=== PATIENT | male | born 1960 | race Caucasian/White ===

== ENCOUNTER 2020-08-16 08:51 | Day surgery (SDC) | payer OTHER ==
[2020-08-15 08:37] VITALS: BMI 27.6
[~2020-08-16 08:51] MED LIST: LACTATED RINGERS 1,000 ML IV SCH; LIDOCAINE 1% (10MG/ML) FOR IV START INTRADERMA PRN
[2020-08-16 09:27] VITALS: RESP 16; TEMP 98.4
[2020-08-16] MEDS ORDERED: PROPOFOL 10 MG/ML 20 ML VIAL IV ONE (09:56)
--- NOTE | 2020-08-16 10:02 | P.GSHP ---
History of Present Illness H&P Date: 08/16/20 Chief Complaint: GERD, screening Patient here today for colonoscopy and upper endoscopy. Patient has complaints of frequent reflux. He did have good resolution of his symptoms with prescription antiacids. No dysphagia. No rectal bleeding or melena. Last colonoscopy 12 years ago and was normal. No bowel complaints. No family history of colon cancer. Past Medical History Additional Past Medical History / Comment(s): "watching pressure in eyes" History of Any Multi-Drug Resistant Organisms: None Reported Past Surgical History: Hernia Repair, Orthopedic Surgery Additional Past Surgical History / Comment(s): carlota foot sx, colonoscopy Past Anesthesia/Blood Transfusion Reactions: No Reported Reaction Smoking Status: Never smoker Medications and Allergies Home Medications Medication Instructions Recorded Confirmed Type Latanoprost/Pf [Latanoprost 0.005% 1 drop BOTH EYES HS 08/15/20 08/16/20 History Eye Drop] Allergies Allergy/AdvReac Type Severity Reaction Status Date / Time No Known Allergies Allergy Verified 08/16/20 09:27 Surgical - Exam Vital Signs Temp Pulse Resp BP Pulse Ox 98.4 F 69 16 156/92 97 08/16/20 09:18 08/16/20 09:18 08/16/20 09:18 08/16/20 09:18 08/16/20 09:18 Physical exam: General: Well-developed, well-nourished HEENT: Normocephalic, sclerae nonicteric Abdomen: Nontender, nondistended Extremities: No edema Neuro: Alert and oriented Assessment and Plan (1) Colon cancer screening Narrative/Plan: Will proceed with colonoscopy at this time Current Visit: Yes Status: Acute Code(s): Z12.11 - ENCOUNTER FOR SCREENING FOR MALIGNANT NEOPLASM OF COLON SNOMED Code(s): 080760647
--- NOTE | 2020-08-16 10:22 | P.PCN ---
Date of Procedure: 08/16/20 Procedure(s) Performed: PREOPERATIVE DIAGNOSIS: GERD, screening POSTOPERATIVE DIAGNOSIS: Mild gastritis, moderate to large hiatal hernia, erosive esophagitis, descending colon polyp, diverticulosis PROCEDURE: 1. EGD with biopsy 2. Colonoscopy with snare polypectomy ANESTHESIA: [facility] SURGEON: Alexander Dodson M.D. SPECIMENS: Antrum, distal esophagus, descending colon polyp ENDOSCOPIC PROCEDURE: The patient was on the endoscopy table in the left decubitus position. The Olympus gastroscope was inserted into the oropharynx and passed under direct visualization to the region of the third portion of the duodenum. From that point the scope was slowly withdrawn inspecting all surfaces carefully. There were no neoplastic inflammatory or polypoid lesions throughout the duodenum. The pylorus was widely patent. The stomach was carefully inspected. There was mild gastritis present. A biopsy of the antrum took place to rule out H. pylori. Retroflexion revealed a moderate to large hiatal hernia. The GE junction was present at least 5 cm above the diaphragmatic hiatus. The stomach above the diaphragm appeared fairly normal. The distal esophagus for a distance of approximately 10 cm however had circumferential esophagitis with numerous linear erosions and friability. No geovany neoplastic changes were seen however there was some mild nodularity to the mucosa inserted and areas. Numerous biopsies took place of the distal esophagus. It was difficult to identify serous changes clinically given the degree of inflammation. The mid and proximal esophagus appeared normal. The patient was kept on the endoscopy table in the left decubitus position. The Olympus colonoscope was inserted into the anus and passed under direct visualization to the base of the cecum. The appendiceal orifice was visualized. From that point the scope was slowly withdrawn inspecting all surfaces carefully. There were no neoplastic inflammatory or polypoid lesions throughout the cecum, ascending, and transverse colon. In the descending colon a small polyp was seen and removed using the snare with cautery technique. The remainder of the descending sigmoid and rectum were normal with the exception of mild diverticulosis. Digital rectal examination was normal. The patient was taken to the recovery room in stable condition per anesthesia guidelines. RECOMMENDATIONS: Await biopsy results. Recommend short-term follow-up EGD. Begin prescription antiacid therapy. Anticipate follow-up EGD and colonoscopy 5 years as well.
[2020-08-16 10:59] VITALS: BP 150/94; PULSE 61
== END 2020-08-16 11:17 | disposition home or self-care (01) ==
LOC: ORWHC2ENDO 08:51
PROVIDERS: ATTEND Surgery
DX: Z12.11 Encounter for screening for malignant neoplasm of colon (principal); K21.00 Gastro-esophageal reflux disease with esophagitis, without bleeding; K44.9 Diaphragmatic hernia without obstruction or gangrene; D12.4 Benign neoplasm of descending colon; K57.30 Diverticulosis of large intestine without perforation or abscess without bleeding; Z98.890 Other specified postprocedural states; Z79.899 Other long term (current) drug therapy
CPT/HCPCS: 88305; 45385; 43239; J2704

== ENCOUNTER 2020-11-01 08:23 | Day surgery (SDC) | payer OTHER ==
[2020-10-27 14:53] VITALS: BMI 27.5
[2020-11-01 08:42] VITALS: TEMP 97.7
[2020-11-01] MEDS ORDERED: LACTATED RINGERS 1,000 ML IV ONE (08:42)
[2020-11-01] MEDS ORDERED: PROPOFOL 10 MG/ML 20 ML VIAL IV ONE (09:13)
[2020-11-01] MEDS ORDERED: LIDOCAINE 1% INJ 10MG/ML (20 ML MDV) ONE (09:13)
--- NOTE | 2020-11-01 09:13 | P.GSHP ---
History of Present Illness H&P Date: 11/01/20 Chief Complaint: GERD Patient here today for upper endoscopy. Patient with significant esophagitis and hiatal hernia seen on recent upper endoscopy in July. Here for short- term follow-up. Patient has modified his diet and is now taking antacids daily. He feels much better. Past Medical History Past Medical History: GERD/Reflux Additional Past Medical History / Comment(s): "watching pressure in eyes d/t over enlarged optic nerve" History of Any Multi-Drug Resistant Organisms: None Reported Past Surgical History: Hernia Repair, Orthopedic Surgery Additional Past Surgical History / Comment(s): carlota foot sx, colonoscopy Past Anesthesia/Blood Transfusion Reactions: No Reported Reaction Smoking Status: Never smoker Medications and Allergies Home Medications Medication Instructions Recorded Confirmed Type Latanoprost/Pf [Latanoprost 0.005% 1 drop BOTH EYES HS 08/15/20 11/01/20 History Eye Drop] Omeprazole [PriLOSEC] 20 mg PO AC-BRKFST #90 cap 08/16/20 10/27/20 Rx Allergies Allergy/AdvReac Type Severity Reaction Status Date / Time No Known Allergies Allergy Verified 10/27/20 14:45 Surgical - Exam Vital Signs Temp Pulse Resp BP Pulse Ox 97.7 F 87 18 167/78 98 11/01/20 08:42 11/01/20 08:42 11/01/20 08:42 11/01/20 08:42 11/01/20 08:42 Physical exam: General: Well-developed, well-nourished HEENT: Normocephalic, sclerae nonicteric Abdomen: Nontender, nondistended Extremities: No edema Neuro: Alert and oriented Assessment and Plan (1) GERD with esophagitis Narrative/Plan: Will proceed with upper endoscopy Current Visit: Yes Status: Acute Code(s): K21.00 - GASTRO-ESOPHAGEAL REFLUX DIS WITH ESOPHAGITIS, WITHOUT BLEED SNOMED Code(s): 463191968
--- NOTE | 2020-11-01 09:22 | P.PCN ---
Date of Procedure: 11/01/20 Procedure(s) Performed: Preoperative Dx: GERD with esophagitis Postoperative Dx: Hiatal hernia, distal esophagitis with Browning's esophagus Procedure: EGD with Bx Anesthesia: Sedation Endoscopist: Dr. Dodson Specimens: Browning's esophagus Endoscopic Procedure: The patient was on the endoscopy table in the left decubitus position. The Olympus gastroscope was inserted into the oropharynx and passed under direct visualization to the region of the third portion of the duodenum. From that point the scope was slowly withdrawn inspecting all surfaces carefully. There were no neoplastic inflammatory or polypoid lesions throughout the duodenum. The pylorus was widely patent. The stomach was carefully inspected. There was no significant gastritis seen. Retroflexion revealed a moderate sized hiatal hernia. The GE junction was present 5 cm above the diaphragmatic hiatus. The stomach above the diaphragm appeared normal. The distal esophagus was significantly improved in regards to the degree of inflammation seen. There was still differential esophagitis extending approximately 2-3 cm above the Z line. There were mucosal changes consistent with Browning's esophagus. Numerous biopsies took place circumferentially. Inflammation of Browning's esophagus extended about 5 cm proximal to the Z line. The remainder the esophagus appear normal. The patient was then taken to the recovery room in stable condition per anesthesia guidelines. Recommendations: Await biopsy results. Recommend repeat EGD 2 years.
[2020-11-01 09:29] VITALS: RESP 16
[2020-11-01 09:42] VITALS: BP 127/84; PULSE 83
== END 2020-11-01 10:09 | disposition home or self-care (01) ==
LOC: ORWHC2ENDO 08:23
PROVIDERS: ATTEND Surgery
DX: K29.50 Unspecified chronic gastritis without bleeding (principal); K21.00 Gastro-esophageal reflux disease with esophagitis, without bleeding; Z98.890 Other specified postprocedural states; Z79.899 Other long term (current) drug therapy
CPT/HCPCS: 88305; 43239; J2001; J2704

== ENCOUNTER → 2022-08-02 | Outpatient (CLI) | payer OTHER ==
--- NOTE | 2022-08-02 11:05 | XR ---
EXAM TYPE: LUMBAR SPINE X RAY SERIES COMPARISON: NONE HISTORY: Pain TECHNIQUE: 3 views are submitted. FINDINGS: Alignment is anatomic. The pedicles are intact. The transverse processes are intact. There is mult ilevel hypertrophic spurring mild to moderate degenerative disc disease. There is a retrolisthesis of L2 relative to L3 posteriorly by approximately 6.3 mm. Multilevel foraminal encroachment is suspecte d. IMPRESSION: 1. Multilevel moderate degenerative disc disease with hypertrophic spurring. Suspect multilevel rosa inal encroachment. 2. There is a retrolisthesis of approximately 6.3 mm of L2 relative to L3. Follow-up MRI could be obt ained to assess for canal stenosis as clinically warranted.
--- NOTE | 2022-08-02 11:25 | XR ---
EXAMINATION TYPE: XR sacrum coccyx DATE OF EXAM: 08/02/2022 COMPARISON: NONE HISTORY: Pain Three views are submitted. Sacrum is intact. SI joints are symmetric. Coccyx appears to be intact. Visualized pelvic structures intact. Calcifications in the pelvis likely vascular. Facet arthropath y L5-S1. IMPRESSION: 1. Facet arthropathy L5-S1 with suspected foraminal encroachment.
== END | disposition home or self-care (01) ==
LOC: RADXRMAIN 10:16
PROVIDERS: ATTEND Family Medicine
DX: M43.16 Spondylolisthesis, lumbar region (principal); M51.36 Other intervertebral disc degeneration, lumbar region; M54.30 Sciatica, unspecified side
CPT/HCPCS: 72100; 72220

== ENCOUNTER → 2022-08-24 | Outpatient (CLI) | payer OTHER ==
--- NOTE | 2022-08-26 21:15 | MR ---
EXAMINATION TYPE: MR lumbar spine wo con DATE OF EXAM: 08/24/2022 COMPARISON: Lumbar spine x-ray August 02, 2022 HISTORY: Low back pain, stiffness into rt buttock. Intervertebral disc degeneration. TECHNIQUE: Multiplanar, multisequence imaging of the lumbar spine is performed without IV contrast. FINDINGS: Sagittal images of the lumbar spine show vertebral body height to appear satisfactory. Slig ht dextroconvex scoliotic curvature centered at L2-L3 level. There is grade 1 retrolisthesis L1 on L2 , L2 on L3, and L3 on L4. Slight. Multilevel disc desiccation. Mild to moderate disc space narrowing L4-L5 level. Moderate disc space narrowing and moderate to severe anterior spurring at L2-L3 and L3-L 4 levels. Moderate anterior spurring at L1-L2 level. The conus medullaris is normal in position and signal ending at superior L1 level. Heterogeneous Modic type II endplate changes at L2-L3 level. Axial images at T12-L1 level appear within normal limits. Axial images at L1-L2 level showed spondylolisthesis with mild to moderate broad disc bulge effacing the anterior thecal sac. Patent bilateral neural foramina. Axial images at L2-L3 level show spondylolisthesis and moderate broad disc bulge effaces the anterior thecal sac with mild facet arthropathy bilaterally. There is mild to moderate bilateral anterior inf erior neural foraminal narrowing. Axial images at L3-L4 level show spondylolisthesis and mild broad disc bulge effacing the anterior th ecal sac with mild to moderate bilateral anterior inferior neural foraminal narrowing. Axial images at L4-L5 level shows mild broad-based posterior disc protrusion effacing the thecal sac with mild/moderate facet arthropathy and ligamentum flavum hypertrophy. There is mild to moderate carlota ateral neural foraminal narrowing. There is splitting of the exiting right L4 nerve noted. Axial images at L5-S1 level show moderate to advanced facet arthropathy bilaterally. Spinal canal pre served. Bilateral neural foramina are patent. The right L5 nerve also splits within the neural forami na. Paraspinal muscle bulk is maintained. IMPRESSION: Multilevel spondylolisthesis and degenerative change in the lumbar spine as detailed riley amato
== END | disposition home or self-care (01) ==
LOC: RADMRIMAIN 17:45
PROVIDERS: ATTEND Family Medicine
DX: M43.16 Spondylolisthesis, lumbar region (principal); M47.816 Spondylosis without myelopathy or radiculopathy, lumbar region; M51.36 Other intervertebral disc degeneration, lumbar region
CPT/HCPCS: 72148

== ENCOUNTER 2024-05-18 11:42 | Inpatient (IN) | payer OTHER ==
--- NOTE | 2024-05-18 12:10 | ED ---
Altered Mental Status HPI - General Chief Complaint: Altered Mental Status Stated Complaint: AMS Time Seen by Provider: 05/18/24 11:53 Source: patient, family, RN notes reviewed, old records reviewed Mode of arrival: ambulatory Limitations: no limitations - History of Present Illness Initial Comments: This is a 64-year-old male to the ER for evaluation patient coming in for acute confusion. Family noticed that he went down to work out around 10 AM he came up around noon and started asking where questions was unable to get in his phone and family became very concerned over his neurological symptoms. Patient is unable to provide accurate history here in the ER but does who is ambulating freely around the exam room and keeps repeating himself MD Complaint: altered mental status, confusion -: hour(s) Severity: moderate Consistency of Symptoms: getting worse, constant Associated Symptoms: denies other symptoms Treatments Prior to Arrival: other pre-hospital medication (0) - Related Data Home Medications Medication Instructions Recorded Confirmed Latanoprost/Pf [Latanoprost 0.005% 1 drop BOTH EYES HS 08/15/20 05/18/24 Eye Drop] Omeprazole [PriLOSEC] 20 mg PO DAILY PRN 05/18/24 05/18/24 Previous Rx's Medication Instructions Recorded Aspirin 325 mg PO DAILY #90 tab 05/20/24 Atorvastatin [Lipitor] 80 mg PO HS #90 tab 05/20/24 Allergies Allergy/AdvReac Type Severity Reaction Status Date / Time No Known Allergies Allergy Verified 05/18/24 13:09 Review of Systems ROS Statement: Those systems with pertinent positive or pertinent negative responses have been documented in the HPI. ROS Other: All systems not noted in ROS Statement are negative. Past Medical History Past Medical History: GERD/Reflux Additional Past Medical History / Comment(s): "watching pressure in eyes d/t over enlarged optic nerve" History of Any Multi-Drug Resistant Organisms: None Reported Past Surgical History: Hernia Repair, Orthopedic Surgery Additional Past Surgical History / Comment(s): carlota foot sx, colonoscopy Past Anesthesia/Blood Transfusion Reactions: No Reported Reaction Past Psychological History: No Psychological Hx Reported Smoking Status: Never smoker - Past Family History Father Family Medical History: AFIB General Exam - General Exam Comments Initial Comments: Patient with a NIH of 3 Limitations: no limitations General appearance: alert, in no apparent distress, anxious Head exam: Present: atraumatic, normocephalic, normal inspection Eye exam: Present: normal appearance, PERRL, EOMI. Absent: scleral icterus, conjunctival injection, periorbital swelling ENT exam: Present: normal exam, mucous membranes moist Neck exam: Present: normal inspection. Absent: tenderness, meningismus, lymphadenopathy Respiratory exam: Present: normal lung sounds bilaterally. Absent: respiratory distress, wheezes, rales, rhonchi, stridor Cardiovascular Exam: Present: regular rate, normal rhythm, normal heart sounds. Absent: systolic murmur, diastolic murmur, rubs, gallop, clicks GI/Abdominal exam: Present: soft, normal bowel sounds. Absent: distended, tenderness, guarding, rebound, rigid Extremities exam: Present: normal inspection, full ROM, normal capillary refill. Absent: tenderness, pedal edema, joint swelling, calf tenderness Back exam: Present: normal inspection Neurological exam: Present: alert, oriented X3, CN II-XII intact Psychiatric exam: Present: normal affect, normal mood Skin exam: Present: warm, dry, intact, normal color. Absent: rash Course Vital Signs 05/18/24 05/18/24 05/18/24 11:49 11:57 12:18 Temperature 97.9 F Pulse Rate 60 57 L 60 Respiratory 20 23 18 Rate Blood Pressure 159/101 179/104 158/94 O2 Sat by Pulse 99 97 96 Oximetry 05/18/24 05/18/24 05/18/24 12:30 12:45 13:08 Temperature Pulse Rate 60 59 L 54 L Respiratory 18 18 18 Rate Blood Pressure 161/94 158/98 154/94 O2 Sat by Pulse 97 98 98 Oximetry 05/18/24 05/18/24 05/18/24 13:32 14:01 15:00 Temperature Pulse Rate 66 60 70 Respiratory 18 20 16 Rate Blood Pressure 151/95 146/96 154/95 O2 Sat by Pulse 98 99 98 Oximetry 05/18/24 05/18/24 05/19/24 18:08 20:59 01:05 Temperature Pulse Rate 76 86 58 L Respiratory 18 18 16 Rate Blood Pressure 134/94 126/82 98/62 O2 Sat by Pulse 95 94 L 98 Oximetry 05/19/24 05/19/24 05/19/24 06:00 10:14 12:24 Temperature 98.2 F Pulse Rate 61 59 L 58 L Respiratory 16 18 18 Rate Blood Pressure 128/88 142/89 150/93 O2 Sat by Pulse 97 100 98 Oximetry 05/19/24 13:15 Temperature Pulse Rate 74 Respiratory 18 Rate Blood Pressure 140/84 O2 Sat by Pulse 97 Oximetry - Reevaluation(s) Reevaluation #1: 05/18/24 14:29 Medical records reviewed Reevaluation #2: 05/18/24 14:29 Patient symptoms are unchanged States may be a little bit better but not nothing appreciable Reevaluation #3: 05/18/24 14:29 Patient informed of results and questions answered Reevaluation #4: Was pt. sent in by a medical professional or institution (, JOSE, ATHLETIC COORDINATOR, urgent care, hospital, or fpc...) When possible be specific @ -no Did you speak to anyone other than the patient for history (EMS, parent, family, police, friend...)? What history was obtained from this source @ -no Did you review nursing and triage notes (agree or disagree)? Why? @ -agree Are old charts reviewed (outside hosp., previous admission, EMS record, old EKG, old radiological studies, urgent care reports/EKG's, fpc records)? Report findings @ -yes Differential Diagnosis (chest pain, altered mental status, abdominal pain women, abdominal pain men, vaginal bleeding, weakness, fever, dyspnea, syncope, headache, dizziness, GI bleed, back pain, seizure, CVA, palpatations, mental health, musculoskeletal)? @ -prior EKG interpreted by me (3pts min.). @ -yes X-rays interpreted by me (1pt min.). @ -no CT interpreted by me (1pt min.). @ -Chest negative for acute disease U/S interpreted by me (1pt. min.). @ -no What testing was considered but not performed or refused? (CT, X-rays, U/S, labs)? Why? @ -none What meds were considered but not given or refused? Why? @ -none Did you discuss the management of the patient with other professionals (professionals i.e. JOSE Vicente, ATHLETIC COORDINATOR, lab, RT, psych nurse, long term care social worker, mink rancher, teacher, police officer crime prevention, case hardener)? Give summary @ -no Was smoking cessation discussed for >3mins.? @ -no Was critical care preformed (if so, how long)? @ -no Were there social determinants of health that impacted care today? How? (Homelessness, low income, unemployed, alcoholism, drug addiction, transportation, low edu. Level, literacy, decrease access to med. care, senior living, rehab)? @ -none Was there de-escalation of care discussed even if they declined (Discuss DNR or withdrawal of care, Hospice)? DNR status @ -no What co-morbidities impacted this encounter? (DM, HTN, Smoking, COPD, CAD, Cancer, CVA, ARF, Chemo, Hep., AIDS, mental health diagnosis, sleep apnea, morbid obesity)? @ -none Was patient admitted / discharged? Hospital course, mention meds given and route, prescriptions, significant lab abnormalities, going to OR and other pertinent info. @ - 64 male to ER for evaluation of acute CVA patient symptoms are unchanged here in the ER Admitted Undiagnosed new problem with uncertain prognosis? @ -no Drug Therapy requiring intensive monitoring for toxicity (Heparin, Nitro, Insulin, Cardizem)? @ -no Were any procedures done? @ -no Diagnosis/symptom? @ -CVA no tPA Acute, or Chronic, or Acute on Chronic? @ -Acute Uncomplicated (without systemic symptoms) or Complicated (systemic symptoms)? @ -Complicated Side effects of treatment? @ -no Exacerbation, Progression, or Severe Exacerbation? @ -exacerbation Poses a threat to life or bodily function? How? (Chest pain, USA, MA, pneumonia, PE, COPD, DKA, ARF, appy, cholecystitis, CVA, Diverticulitis, Homicidal, Suicidal, threat to staff... and all critical care pts) @ -yes yes acute CVA Reevaluation #5: Differential CVA Ischemic stroke, hemorrhagic stroke, brain tumor, atypical migraine, Wernicke's encephalopathy, seizure, multiple sclerosis, meningitis, encephalitis, hypoglycemia, Guillain-Velasquez, electrolytes disturbance, myasthenia gravis.... This is not meant to be an all-inclusive list - Consultations Consultation #1: Spoke with Bhupinder who agreed to admit this patient Medical Decision Making - Medical Decision Making 64 male to ER for evaluation of acute CVA patient symptoms are unchanged here in the ER - Lab Data Result diagrams: 05/18/24 12:03 05/18/24 12:03 Lab Results 0905/18/24 05/18/24 Range/Units 12:01 12:03 12:03 WBC 4.8 (3.8-10.6) k/uL RBC 5.14 (4.30-5.90) m/uL Hgb 14.6 (13.0-17.5) gm/dL Hct 45.0 (39.0-53.0) % MCV 87.6 (80.0-100.0) fL MCH 28.4 (25.0-35.0) pg MCHC 32.4 (31.0-37.0) g/dL RDW 13.7 (11.5-15.5) % Plt Count 190 (150-450) k/uL MPV 7.9 Neutrophils % 61 % Lymphocytes % 24 % Monocytes % 7 % Eosinophils % 6 % Basophils % 0 % Neutrophils # 2.9 (1.3-7.7) k/uL Lymphocytes # 1.1 (1.0-4.8) k/uL Monocytes # 0.3 (0-1.0) k/uL Eosinophils # 0.3 (0-0.7) k/uL Basophils # 0.0 (0-0.2) k/uL PT 10.7 (10.0-12.5) sec INR 1.0 (<1.2) APTT 26.2 (22.0-30.0) sec Sodium (137-145) mmol/L Potassium (3.5-5.1) mmol/L Chloride (98-107) mmol/L Carbon Dioxide (22-30) mmol/L Anion Gap mmol/L BUN (9-20) mg/dL Creatinine (0.66-1.25) mg/dL Est GFR (CKD-EPI)AfAm (>60 ml/min/1.73 sqM) Est GFR (CKD-EPI)NonAf (>60 ml/min/1.73 sqM) Glucose (74-99) mg/dL POC Glucose (mg/dL) 98 (70-110) mg/dL POC Glu Product Development Actuary ID [facility] Calcium (8.4-10.2) mg/dL Total Bilirubin (0.2-1.3) mg/dL AST (17-59) U/L ALT (4-49) U/L Alkaline Phosphatase (38-126) U/L Creatine Kinase (55-170) U/L Troponin I (0.000-0.034) ng/mL Total Protein (6.3-8.2) g/dL Albumin (3.5-5.0) g/dL 05/18/24 05/18/24 Range/Units 12:03 12:03 WBC (3.8-10.6) k/uL RBC (4.30-5.90) m/uL Hgb (13.0-17.5) gm/dL Hct (39.0-53.0) % MCV (80.0-100.0) fL MCH (25.0-35.0) pg MCHC (31.0-37.0) g/dL RDW (11.5-15.5) % Plt Count (150-450) k/uL MPV Neutrophils % % Lymphocytes % % Monocytes % % Eosinophils % % Basophils % % Neutrophils # (1.3-7.7) k/uL Lymphocytes # (1.0-4.8) k/uL Monocytes # (0-1.0) k/uL Eosinophils # (0-0.7) k/uL Basophils # (0-0.2) k/uL PT (10.0-12.5) sec INR (<1.2) APTT (22.0-30.0) sec Sodium 140 (137-145) mmol/L Potassium 4.6 (3.5-5.1) mmol/L Chloride 104 (98-107) mmol/L Carbon Dioxide 29 (22-30) mmol/L Anion Gap 7 mmol/L BUN 15 (9-20) mg/dL Creatinine 0.84 (0.66-1.25) mg/dL Est GFR (CKD-EPI)AfAm >90 (>60 ml/min/1.73 sqM) Est GFR (CKD-EPI)NonAf >90 (>60 ml/min/1.73 sqM) Glucose 96 (74-99) mg/dL POC Glucose (mg/dL) (70-110) mg/dL POC Glu Product Development Actuary ID Calcium 10.1 (8.4-10.2) mg/dL Total Bilirubin 1.0 (0.2-1.3) mg/dL AST 35 (17-59) U/L ALT 30 (4-49) U/L Alkaline Phosphatase 100 (38-126) U/L Creatine Kinase 138 (55-170) U/L Troponin I <0.012 (0.000-0.034) ng/mL Total Protein 7.8 (6.3-8.2) g/dL Albumin 4.5 (3.5-5.0) g/dL - EKG Data -: EKG Interpreted by Me (EKG is sinus bradycardia 58 LA 185 QRS 94 QTc 366) - Radiology Data Radiology results: report reviewed (CT brain CTA head neck negative for acute disease), image reviewed Critical Care Time Critical Care Time: Yes Total Critical Care Time: 31 Disposition Clinical Impression: Altered mental status, CVA (cerebral vascular accident) Disposition: ADMITTED IP TO THIS [facility] Condition: Serious Is patient prescribed a controlled substance at d/c from ED?: No Time of Disposition: 14:30
[2024-05-18 12:13] LABS: Basophils % (A) 0 %; Eosinophils # (A) 0.3 k/uL (0-0.7); Eosinophils % (A) 6 %; HGB 14.6 gm/dL (13.0-17.5); Lymphocytes # (A) 1.1 k/uL (1.0-4.8); Lymphocytes % (A) 24 %; MCH 28.4 pg (25.0-35.0); MCHC 32.4 g/dL (31.0-37.0); MCV 87.6 fL (80.0-100.0); Mean Platelet Volume 7.9; Monocytes # (A) 0.3 k/uL (0-1.0); Monocytes % (A) 7 %; Neutrophils # (A) 2.9 k/uL (1.3-7.7); Neutrophils % (A) 61 %; Platelet Count 190 k/uL (150-450); RBC 5.14 m/uL (4.30-5.90); RDW 13.7 % (11.5-15.5); WBC 4.8 k/uL (3.8-10.6)
[2024-05-18] MEDS: SODIUM CHLORIDE 0.9% 1,000 ML IV STA (12:17)
[2024-05-18 12:23] LABS: Partial Thromboplastin Time 26.2 sec (22.0-30.0); Prothrombin Time 10.7 sec (10.0-12.5)
--- NOTE | 2024-05-18 12:24 | CT ---
EXAMINATION TYPE: CODE STROKE: CT brain wo contr CT DLP: 1290.6 mGycm, Automated exposure control for dose reduction was used. DATE OF EXAM: 05/18/2024 12:19 PM COMPARISON: None. CLINICAL INDICATION:Male, 64 years old with history of Neuro deficit, acute, stroke suspected, TECHNIQUE: Brain: Multiple axial CT images of the brain were obtained without IV contrast. . Coronal and sagitta l reformats reviewed. FINDINGS: Brain: Extra-axial spaces: No abnormal extra-axial fluid collections. Ventricular system: Within normal limits Cerebral parenchyma: No acute intraparenchymal hemorrhage or mass effect. The mckeon-white junction is well differentiated. Scattered hypoattenuating areas are seen within the periventricular white matte r. Cerebellum: Unremarkable. Mass effect: No evidence of midline shift. Intracranial vasculature: Atherosclerotic calcifications of the intracranial vessels. Soft tissues: Normal. Calvarium/osseous structures: No depressed skull fracture. Paranasal sinuses and mastoid air cells: Mastoid air cells are clear. Medial right maxillary sinus 9 mm mucous retention cyst versus polyp. Remaining paranasal sinuses are clear. Visualized orbits: Orbital contents are intact. IMPRESSION: 1. No acute intracranial process. 2. Nonspecific white matter changes, likely secondary to chronic small vessel ischemic disease. [facility], , 05/18/2024 12:21 PM
[2024-05-18 12:30] LABS: ALT 30 U/L (4-49); AST 35 U/L (17-59); African American GFR (CKD) >90 (>60 ml/min/1.73 sqM); Albumin 4.5 g/dL (3.5-5.0); Alkaline Phosphatase 100 U/L (38-126); Anion Gap 7 mmol/L; Blood Urea Nitrogen 15 mg/dL (9-20); Calcium 10.1 mg/dL (8.4-10.2); Carbon Dioxide 29 mmol/L (22-30); Chloride 104 mmol/L (98-107); Creatine Kinase 138 U/L (55-170); Glucose 96 mg/dL (74-99); Non-African American GFR(CKD) >90 (>60 ml/min/1.73 sqM); Potassium 4.6 mmol/L (3.5-5.1); Sodium 140 mmol/L (137-145); Total Protein 7.8 g/dL (6.3-8.2)
--- NOTE | 2024-05-18 12:47 | CT ---
EXAMINATION TYPE: CT angio head neck CT DLP: 1290.6 mGycm, Automated exposure control for dose reduction was used. DATE OF EXAM: 05/18/2024 12:34 PM COMPARISON: CT head of the same date. CLINICAL INDICATION:Male, 64 years old with history of Neuro deficit, acute, stroke suspected; PHH, c onfusion, stroke suspected TECHNIQUE: Axially acquired helical CT angiogram of the head and neck was obtained with contrast util izing 75 cc of Isovue-370 administered intravenously. Axial images are supplemented with 3D reconstru ctions which were post-processed at an independent workstation. NASCET criteria used. FINDINGS: CTA HEAD: No evidence of acute intracranial hemorrhage, mass effect, or midline shift. The ventricles, sulci, a nd cisterns are unremarkable. The visualized portions of the internal carotid arteries, middle cerebral arteries, anterior cerebral arteries, and posterior cerebral arteries are patent. Hypoplastic left posterior cerebral artery. The basilar and vertebral arteries are patent. CTA NECK: Right Carotid System: The common carotid artery and external carotid artery are patent. Minimal calcified plaque at the car otid bulb. The carotid bifurcation demonstrates no evidence of hemodynamically significant stenosis. Mild atherosclerotic plaque in the cavernous portion of the internal carotid artery. The remaining po rtions of the internal carotid artery demonstrate normal size without significant narrowing. Left Carotid System: The common carotid artery and external carotid artery are patent. Minimal calcified plaque in the car otid bulb. The carotid bifurcation demonstrates no evidence of hemodynamically significant stenosis. Mild atherosclerotic plaque in the cavernous portion of the internal carotid artery. The remaining po rtions of the internal carotid artery demonstrate normal size without significant narrowing. Vertebral arteries are patent without evidence hemodynamically significant stenosis. Vertebral arteri es are codominant. There is a four-vessel aortic arch. The origins of the great vessels are patent. No evidence of hemod ynamically significant stenosis. IMPRESSION: 1. No evidence of dissection of the cervical internal carotid arteries or vertebral arteries or any e vidence of significant stenosis at the carotid bifurcations. 2. No evidence of high-grade stenosis or intracranial aneurysm. [facility], , 05/18/2024 12:45 PM
[2024-05-18] MEDS: ASPIRIN 325 MG TAB PO STA (14:57)
[2024-05-18] MEDS: SODIUM CHLORIDE 0.9% 1,000 ML IV SCH (14:58)
[2024-05-18] MEDS: ATORVASTATIN 80 MG TAB PO SCH (20:56)
[2024-05-18] MEDS: CALCIUM CARBONATE 500 MG CHEWABLE PO PRN (22:35)
[2024-05-19] MEDS: ASPIRIN 325 MG TAB PO SCH (10:16)
--- NOTE | 2024-05-19 10:51 | CA ---
Transthoracic Echo Report Name: Angy Robertson Age: 64 Gender: M : 1960 Exam Date: 05/19/2024 09:28 Exam Location: [facility] Ht (in): 70 Wt (lb): 193 Ordering Physician: Nikolai Clarke DO Attending/Referring Phys: [id number], Vince Internet Marketing Manager Geraldine Manuel RDCS Procedure CPT: Indications: Thrombus Cardiac Hx: CVA Technical Quality: Fair Contrast 1: Agitated Saline Total Dose (mL): Contrast 2: Total Dose (mL): MEASUREMENTS (Male / Female) Normal Values 2D ECHO LV Diastolic Diameter PLAX 4.5 cm 4.2 - 5.9 / 3.9 - 5.3 cm LV Systolic Diameter PLAX 2.7 cm IVS Diastolic Thickness 1.1 cm 0.6 - 1.0 / 0.6 - 0.9 cm LVPW Diastolic Thickness 1.5 cm 0.6 - 1.0 / 0.6 - 0.9 cm LV Relative Wall Thickness 0.6 RV Internal Dim ED PLAX 2.0 cm LA Systolic Diameter LX 4.7 cm 3.0 - 4.0 / 2.7 - 3.8 cm LV Diastolic Volume MOD BP 65.4 cm??? 67 - 155 / 56 - 104 cm??? LV Systolic Volume MOD BP 26.6 cm??? 22 - 58 / 19 - 49 cm??? LV Ejection Fraction MOD BP 59.3 % >= 55 % LV Cardiac Index MOD BP 1018.0 cm???/min???m??? LV Diastolic Volume MOD 4C 71.8 cm??? LV Systolic Volume MOD 4C 26.3 cm??? LV Ejection Fraction MOD 4C 63.3 % LV Cardiac Index MOD 4C 1192.5 cm???/min???m??? LV Diastolic Length 4C 7.1 cm LV Systolic Length 4C 5.9 cm LV Diastolic Volume MOD 2C 58.7 cm??? LV Systolic Volume MOD 2C 26.0 cm??? LV Ejection Fraction MOD 2C 55.8 % LV Cardiac Index MOD 2C 860.1 cm???/min???m??? LV Diastolic Length 2C 7.3 cm LV Systolic Length 2C 6.1 cm LA Volume 51.5 cm??? 18 - 58 / 22 - 52 cm??? LA Volume Index 24.6 cm???/m??? 16 - 28 cm???/m??? M-MODE Aortic Root Diameter MM 3.4 cm LA Systolic Diameter MM 4.2 cm LA Ao Ratio MM 1.3 AV Cusp Separation MM 1.9 cm DOPPLER MV Area PHT 2.7 cm??? Mitral E Point Velocity 72.4 cm/s Mitral A Point Velocity 86.1 cm/s Mitral E to A Ratio 0.8 MV Deceleration Time 283.1 ms TR Peak Velocity 232.8 cm/s TR Peak Gradient 21.7 mmHg FINDINGS Left Ventricle Left ventricular ejection fraction is estimated at 55-60 %. Mildly increased septal wall thickness. Normal left ventricular systolic function with no obvious regional wall motion abnormalities. Right Ventricle Moderate right ventricular dilatation. Right ventricular systolic pressure within normal limits. Right Atrium Moderate right atrial dilatation. Negative agitated saline bubble study for right to left shunt. Left Atrium Mildly increased left atrial diameter. Mitral Valve Structurally normal mitral valve. Mild mitral regurgitation. No mitral stenosis. Aortic Valve Trileaflet aortic valve. No aortic valve stenosis or regurgitation. Tricuspid Valve Structurally normal tricuspid valve. Moderate tricuspid regurgitation. No tricuspid stenosis. Pulmonic Valve Structurally normal pulmonic valve. Trace pulmonic regurgitation. No pulmonic stenosis. Pericardium No pericardial or pleural effusion. Aorta Normal size aortic root and proximal ascending aorta. CONCLUSIONS Normal LV function No intracardiac thrombus Negative bubble study Consider transesophageal echo to definitively rule out cardiac source for thromboembolic phenomenon Previewed by: Dr. Jonn Link MD (Electronically Signed) Final Date: 19 May 2024 10:50
--- NOTE | 2024-05-19 13:34 | P.CNNES ---
History of Present Illness Consult date: 05/18/24 Requesting physician: Nikolai Clarke Reason for Consult: CVA History of Present Illness: Patient is a 64-year-old right-handed male came with acute episode of amnesia. Patient states that he woke up at 6:30 AM today, got in the hot tub, then worked out, took a shower, went to the office, which is in his basement and was doing paperwork. He went upstairs, made coffee at around 7:30 AM. He made some plans to go to the breakfast. Then he lost some memory for variable period of time. I spoke to patient's , who mentions that his symptoms started at around 11 AM when he could not remember the password to his phone. Then he kept on repeating "what day it was". When he asked the same question third time to his , she got concerned and cross questioned him. He could not tell how old was he, what month was it or the year. She brought him to the ER, and they arrived at 11:42 AM. Patient states that he remembers getting into the car, but does not remember coming into the ER. However since he has been in the ER, his memory has come back. He still does not remember a couple hours prior to arrival as mentioned above. He denies any headache or any other focal neurological symptoms. At present he feels back to baseline. No previous history of hypertension or diabetes. He has never smoked, does not drink alcohol. His dad has history of atrial fibrillation. Patient has history of sleep apnea and possible glaucoma. Takes some eyedrops. Vital signs on arrival blood pressure 159/101, which went up to 179/104 and then 158/94. Pulse rate 60, temperature 97.9. Blood test shows normal CBC, PT PTT, normal CMP, troponin. EKG showed sinus bradycardia. CT head revealed no acute intracranial process. Nonspecific white matter changes, likely secondary to chronic small vessel ischemic disease. I personally reviewed CT head, agree with the findings. Review of Systems All pertinent positive and negatives mentioned in the HPI. Otherwise completely unremarkable. Past Medical History Past Medical History: GERD/Reflux Additional Past Medical History / Comment(s): "watching pressure in eyes d/t over enlarged optic nerve" History of Any Multi-Drug Resistant Organisms: None Reported Past Surgical History: Hernia Repair, Orthopedic Surgery Additional Past Surgical History / Comment(s): carlota foot sx, colonoscopy Past Anesthesia/Blood Transfusion Reactions: No Reported Reaction Past Psychological History: No Psychological Hx Reported Smoking Status: Never smoker Medications and Allergies Home Medications Medication Instructions Recorded Confirmed Type Latanoprost/Pf [Latanoprost 0.005% 1 drop BOTH EYES HS 08/15/20 05/18/24 History Eye Drop] Omeprazole [PriLOSEC] 20 mg PO DAILY PRN 05/18/24 05/18/24 History Allergies Allergy/AdvReac Type Severity Reaction Status Date / Time No Known Allergies Allergy Verified 05/18/24 13:09 Physical Examination - Vital Signs Vital Signs: Vital Signs Temp Pulse Resp BP Pulse Ox 05/18/24 20:59 86 18 126/82 94 L 05/18/24 18:08 76 18 134/94 95 05/18/24 15:00 70 16 154/95 98 05/18/24 14:01 60 20 146/96 99 05/18/24 13:32 66 18 151/95 98 05/18/24 13:08 54 L 18 154/94 98 05/18/24 12:45 59 L 18 158/98 98 05/18/24 12:30 60 18 161/94 97 05/18/24 12:18 60 18 158/94 96 05/18/24 11:57 57 L 23 179/104 97 05/18/24 11:49 97.9 F 60 20 159/101 99 Intake and Output 05/18/24 05/18/24 05/18/24 06:59 14:59 22:59 Other: Weight 87.543 kg Patient is an elderly male, in no acute distress. Patient is alert awake oriented to time place and person. Speech and language functions are normal. Patient can name and repeat very well. No aphasia or dysarthria. Attention, concentration and fund of knowledge is adequate. On cranial nerve examination, pupils are equal, round and reacting to light, visual ovalle are full on confrontation, with no neglect on double simultaneous stimulation. Extraocular muscles are intact with no nystagmus. Face is symm etric, tongue protrudes to the midline. Palatal elevation and sensation normal, hearing and shoulder shrug normal, facial sensation normal. On muscle strength testing, there is no pronator drift and the strength is normal in arms and legs distally and proximally. Deep tendon reflexes are symmetric hypoactive and plantars downgoing. Sensory to touch is equal with no neglect on double simultaneous stimulation. Cerebellar function showed no ataxia for zlzlxd-lw-lzqe testing. No dysdiadochokinesia. No ataxia for pgoj-qt-ohis testing on either side. Tone and bulk of muscles normal. Gait deferred.. On general examination, there is no carotid bruit or murmur, S1-S2 audible. Chest is clear on consultation. Abdomen is soft nontender. No organomegaly, bowel sounds present. Peripheral pulses are present. No peripheral edema. Results - Laboratory Findings CBC and BMP: 05/18/24 12:03 05/18/24 12:03 Assessment and Plan Assessment: * Probable transient global amnesia. Symptoms have completely resolved. Current NIH stroke scale is 0. * Hypertension * Sleep apnea * Glaucoma Plan: MRI of the brain without contrast, evaluate for acute CVA 2-D echo revealed normal left ventricular size and systolic function with EF 55 to 60%. No obvious regional wall motion abnormalities. Left atrium mildly increased in diameter. Negative agitated saline bubble study for eekol-lv-eeuz shunt. CTA head and neck showed: No evidence of dissection of the cervical internal carotid arteries or vertebral arteries or any evidence of significant stenosis at the carotid bifurcations. No evidence of high-grade stenosis or intracranial aneurysm. EEG, rule out epileptiform activity. Fasting a.m. lipid panel Hemoglobin A1c Permissive hypertension for next 24-48 hours Start aspirin 325 mg daily. Patient was not taking any antiplatelet medication at home. Neuro checks every shift. Telemetry monitoring rule out any arrhythmia DVT prophylaxis: Patient very low risk. Patient ambulatory. Neurology will continue to follow. Thank you for the consult.
[2024-05-19] MEDS ORDERED: PANTOPRAZOLE 40 MG TABLET PO PRN (15:15)
[2024-05-19] MEDS: PANTOPRAZOLE 40 MG TABLET PO SCH (16:19)
[2024-05-19] MEDS: LATANOPROST 0.005% OPHTH DROPS 2.5 ML BTL BOTH EYES SCH (20:10)
--- NOTE | 2024-05-19 21:02 | EEG ---
ELECTROENCEPHALOGRAM REPORT PREAMBLE: This is a 64-year-old male with transient global amnesia. This study is performed to rule out any seizure activity. EEG FINDINGS: This is a 21-channel digital EEG recorded with video component, utilizing 10/20 international system with referential and bipolar montages. Background consists of well developed, well regulated moderate voltage activity in 10 hertz alpha. Background is posterior dominant and reactive to eye opening and closing. Photic driving response was seen with some flash frequencies. Drowsiness was seen with appearance of bilaterally symmetric theta frequency rhythm. Stage 2 sleep was attained with presence of sleep spindles and vertex waves. No focal or generalized epileptiform activity was seen. EKG channel showed no obvious arrhythmia. Hyperventilation was not done. IMPRESSION: This is a normal EEG during wakefulness, drowsiness, and stage 2 sleep. No focal, lateralized, or epileptiform activity was seen. MMCHANDLERL / RASHARDN: [id number] /
[2024-05-19 21:26] LABS: Chol/HDL Ratio 5.18 Ratio; LDL Cholesterol,Calculated 152.1 mg/dL (0.0-131.0)
--- NOTE | 2024-05-19 21:53 | P.HPIM ---
History of Present Illness H&P Date: 05/19/24 Chief Complaint: Cognitive deficit The patient is a 64-year-old male who has no known history of reflux esophagitis. The patient was doing his normal morning routine and his girlfriend noticed that he was not as normally alert. He was disoriented and confused. He could not operate his own phone and answered demographic information incorrectly. He was finally taken to the emergency room and his cognitive skills slowly improved. No history of CVA TIA or history of seizure in the past no head trauma. The patient actively exercises. Review of Systems Constitutional: Denies chills, Denies fever Eyes: denies blurred vision, denies pain Ears, nose, mouth and throat: Denies headache, Denies sore throat Cardiovascular: Denies chest pain, Denies shortness of breath Respiratory: Denies cough Gastrointestinal: Denies abdominal pain, Denies diarrhea, Denies nausea, Denies vomiting Musculoskeletal: Denies myalgias Integumentary: Denies pruritus, Denies rash Neurological: Denies numbness, Denies weakness Past Medical History Past Medical History: GERD/Reflux Additional Past Medical History / Comment(s): "watching pressure in eyes d/t over enlarged optic nerve" History of Any Multi-Drug Resistant Organisms: None Reported Past Surgical History: Hernia Repair, Orthopedic Surgery Additional Past Surgical History / Comment(s): carlota foot sx, colonoscopy, inguinal hernia repair x2 Past Anesthesia/Blood Transfusion Reactions: No Reported Reaction Past Psychological History: No Psychological Hx Reported Smoking Status: Never smoker Past Alcohol Use History: Occasional Past Drug Use History: None Reported - Past Family History Father Family Medical History: AFIB Medications and Allergies Home Medications Medication Instructions Recorded Confirmed Type Latanoprost/Pf [Latanoprost 0.005% 1 drop BOTH EYES HS 08/15/20 05/18/24 History Eye Drop] Omeprazole [PriLOSEC] 20 mg PO DAILY PRN 05/18/24 05/18/24 History Allergies Allergy/AdvReac Type Severity Reaction Status Date / Time No Known Allergies Allergy Verified 05/18/24 13:09 Physical Exam Vitals: Vital Signs Temp Pulse Pulse Resp BP BP BP 05/19/24 20:00 97.8 F 65 16 106/65 05/19/24 16:00 78 18 146/77 05/19/24 14:30 78 16 146/77 05/19/24 14:25 16 05/19/24 13:15 74 18 140/84 05/19/24 12:24 98.2 F 58 L 18 150/93 05/19/24 10:14 59 L 18 142/89 05/19/24 06:00 61 16 128/88 05/19/24 01:05 58 L 16 98/62 Pulse Ox 05/19/24 20:00 96 05/19/24 16:00 95 05/19/24 14:30 05/19/24 14:25 05/19/24 13:15 97 05/19/24 12:24 98 05/19/24 10:14 100 05/19/24 06:00 97 05/19/24 01:05 98 Intake and Output 05/19/24 05/19/24 05/19/24 06:59 14:59 22:59 Intake Total 140 Balance 140 Intake: IV 20 Invasive Line 1 10 Invasive Line 2 10 Oral 120 Other: Voiding Method Toilet Weight 87.543 kg - Constitutional General appearance: cooperative, no acute distress - EENT Eyes: EOMI - Neck Neck: no lymphadenopathy - Respiratory Respiratory: bilateral: diminished - Cardiovascular Rhythm: regular Heart sounds: normal: S1, S2 Abnormal Heart Sounds: no S3 Gallop - Gastrointestinal General gastrointestinal: soft, no tenderness - Integumentary Integumentary: no cellulitis - Psychiatric Psychiatric: A&O x's 3 Results CBC & Chem 7: 05/18/24 12:03 05/18/24 12:03 Labs: Abnormal Lab Results - Last 24 Hours (Table) 05/19/24 05/19/24 Range/Units 09:20 09:20 Hemoglobin A1c 6.4 H (<=6.0) % Cholesterol 215.00 H (0.00-200.00) mg/dL LDL Cholesterol, Calc 152.1 H (0.0-131.0) mg/dL Assessment and Plan (1) RIND (reversible ischemic neurologic deficit), acute Current Visit: Yes Status: Acute Code(s): I63.9 - CEREBRAL INFARCTION, UNSPECIFIED SNOMED Code(s): 27154002 (2) Altered mental status Current Visit: Yes Status: Acute Code(s): R41.82 - ALTERED MENTAL STATUS, UNSPECIFIED SNOMED Code(s): 024273380 (3) GERD with esophagitis Current Visit: No Status: Acute Code(s): K21.00 - GASTRO-ESOPHAGEAL REFLUX DIS WITH ESOPHAGITIS, WITHOUT BLEED SNOMED Code(s): 170934907 Plan: Initial workup is nominal including EEG, CT scan with echocardiogram. Restart home medications. Appreciate neurology input. He will be started on high intensity statin with aspirin. Await MRI. Symptoms have resolved. He is a full code. Anticipate discharge in the next 24 hours if workup is nominal. Time with Patient: Greater than 30
[2024-05-19 23:24] VITALS: TEMP 97.9
[2024-05-20 07:58] VITALS: BP 151/73; PULSE 70; RESP 18
--- NOTE | 2024-05-20 08:39 | P.PN ---
Subjective Progress Note Date: 05/19/24 Patient was seen for a follow-up. Patient's was also present. All symptoms have resolved. Offers no complaints. Patient denies any headache or dizziness. Objective - Vital Signs Vital signs: Vital Signs Temp 98.2 F 05/19/24 12:24 Pulse 78 05/19/24 16:00 Resp 18 05/19/24 16:00 BP 146/77 05/19/24 16:00 Pulse Ox 95 05/19/24 16:00 FiO2 Intake & Output 05/18/24 05/19/24 05/19/24 18:59 06:59 18:59 Weight 87.543 kg 87.543 kg - Exam Mental status, speech and language functions normal. Examination completely nonfocal. - Labs CBC & Chem 7: 05/18/24 12:03 05/18/24 12:03 Labs: Abnormal Lab Results - Last 24 Hours (Table) 05/19/24 Range/Units 09:20 Hemoglobin A1c 6.4 H (<=6.0) % Assessment and Plan Assessment: * Probable transient global amnesia. Symptoms have completely resolved. Current NIH stroke scale is 0. * Hypertension * Hyperlipidemia * Prediabetes, with A1c 6.4. * Sleep apnea * Glaucoma Plan: Await MRI of the brain without contrast, evaluate for acute CVA 2-D echo revealed normal left ventricular size and systolic function with EF 55 to 60%. No obvious regional wall motion abnormalities. Left atrium mildly increased in diameter. Negative agitated saline bubble study for ypjdn-oi-ywrj shunt. CTA head and neck showed: No evidence of dissection of the cervical internal c arotid arteries or vertebral arteries or any evidence of significant stenosis at the carotid bifurcations. No evidence of high-grade stenosis or intracranial aneurysm. EEG, was normal during wakefulness, drowsiness and stage II sleep. No focal, lateralized or epileptiform activity was seen. Fasting a.m. lipid panel, with cholesterol 215, LDL 152, HDL 41, triglycerides 107. Agree with starting high intensity statins with Lipitor 80 mg. Hemoglobin A1c 6.4, consistent with borderline diabetes. Recommend healthy lifestyles, dietary modifications. Optimize control of blood pressure. Patient's blood pressure had been running high. Patient may need antihypertensive medication. Will defer to IM. Start aspirin 325 mg daily. Patient was not taking any antiplatelet medication at home. Neuro checks every shift. Telemetry monitoring rule out any arrhythmia DVT prophylaxis: Patient very low risk. Patient ambulatory. Neurologically clear, once the MRI is clear.
--- NOTE | 2024-05-20 08:57 | P.DS ---
Providers Date of admission: 05/18/24 14:25 Attending physician: Andreas Roe Consults: 05/18/24 14:24 Consult Physician Routine Consulting Provider: Winsome Rodriguez Consult Reason/Comments: CVA Do you want consulting provider notified?: Yes Primary care physician: Andreas Roe - Discharge Diagnosis(es) (1) RIND (reversible ischemic neurologic deficit), acute Current Visit: Yes Status: Acute (2) Altered mental status Current Visit: Yes Status: Acute (3) GERD with esophagitis Current Visit: No Status: Acute Hospital Course: Patient admitted with CVA/TIA diagnosis. spontaneous resolution of symptoms. Work up negative. Will DC when cleared by neurology. MRI pending. Patient Condition at Discharge: Serious Plan - Discharge Summary Discharge Rx Participant: No New Discharge Prescriptions: New Aspirin 325 mg PO DAILY #90 tab Atorvastatin [Lipitor] 80 mg PO HS #90 tab Continue Latanoprost/Pf [Latanoprost 0.005% Eye Drop] 1 drop BOTH EYES HS Omeprazole [PriLOSEC] 20 mg PO DAILY PRN PRN Reason: Gi Upset Discharge Medication List Latanoprost/Pf [Latanoprost 0.005% Eye Drop] 1 drop BOTH EYES HS 08/15/20 [History] Omeprazole [PriLOSEC] 20 mg PO DAILY PRN 05/18/24 [History] Aspirin 325 mg PO DAILY #90 tab 05/20/24 [Rx] Atorvastatin [Lipitor] 80 mg PO HS #90 tab 05/20/24 [Rx] Follow up Appointment(s)/Referral(s): Andreas Roe MD [Primary Care Provider] - 1 Week Discharge Disposition: HOME SELF-CARE
--- NOTE | 2024-05-20 12:13 | MR ---
EXAMINATION TYPE: MR brain wo con DATE OF EXAM: 05/20/2024 11:41 AM CLINICAL INDICATION: Male, 64 years old with history of stroke TIA; PHH, Confusion for short time fra me, TIA, Stroke COMPARISON: 05/18/2024. TECHNIQUE: Multi planar, multi sequence imaging was performed through the brain including: T1, T2, In version recovery, Diffusion weighted imaging, and gradient echo imaging. No gadolinium was given. FINDINGS: The mckeon-white junctions, ventricular system, basal cisterns appear unremarkable. . Midline structu res show no abnormality. Diffusion-weighted imaging shows no evidence of restricted diffusion. The odom sceptibility weighted images do not reveal any evidence for micro-hemorrhage. The bone marrow signal is within normal limits. Paranasal sinuses and mastoid air cells: No significant paranasal sinus disease. Visualized orbits: Orbital contents are intact. IMPRESSION: No evidence of intracranial mass or acute/subacute infarct. [facility], , 05/20/2024 12:11 PM
[2024-05-22 11:56] LABS: Glucose,Whole Blood 98 mg/dL (70-110)
== END 2024-05-20 13:10 | disposition home or self-care (01) | DRG 66 ==
LOC: EC 11:42 → 3SCARD 14:25
PROVIDERS: ADMIT Family Medicine; ATTEND Family Medicine
DX: I63.9 Cerebral infarction, unspecified (principal); K21.00 Gastro-esophageal reflux disease with esophagitis, without bleeding; R29.700 NIHSS score 0; I10 Essential (primary) hypertension; H40.9 Unspecified glaucoma; G47.30 Sleep apnea, unspecified; E78.5 Hyperlipidemia, unspecified; R73.03 Prediabetes; G45.4 Transient global amnesia; Z79.82 Long term (current) use of aspirin; Z79.899 Other long term (current) drug therapy; Z28.21 Immunization not carried out because of patient refusal
CPT/HCPCS: 36415; 70450; 70496; 70498; 70551; 80053; 80061; 82550; 83036; 84484; 85025; 85610; 85730; 93005; 93306; 95819; 96360; 96361; 99291